=== PATIENT | female | born 1985 | race Caucasian/White ===

== ENCOUNTER → 2024-02-02 09:50 | Outpatient (REF) | payer OTHER, SELFPAY ==
[2024-02-02 12:26] LABS: Urine Albumin Negative (Neg - Trace); Urine Bilirubin Negative (Negative); Urine Character Clear (Clear); Urine Color Straw; Urine Glucose Negative (Negative); Urine Ketone Negative (Negative); Urine Leukocyte Negative (Negative); Urine Nitrite Negative (Negative); Urine Occult Blood Negative (Negative); Urine Specific Gravity 1.005 (<1.030); Urine Urobilinogen Negative (Neg - 1+); Urine pH 6.5 (5.0-9.0)
== END ==
LOC: HWRAD 09:50
PROVIDERS: ATTENDING PHYSICIAN Urology; FAMILY PHYSICIAN Family Medicine
DX: N30.10 Interstitial cystitis (chronic) without hematuria (principal); M62.89 Other specified disorders of muscle
CPT/HCPCS: 36415; 76770; 76856; 81003

== ENCOUNTER → 2024-03-09 08:40 | Outpatient (REF) | payer OTHER, SELFPAY | LOC: HWRAD 08:40 | PROVIDERS: ATTENDING PHYSICIAN Urology; FAMILY PHYSICIAN Family Medicine | DX: R93.89 Abnormal findings on diagnostic imaging of other specified body structures (principal); N28.89 Other specified disorders of kidney and ureter | CPT/HCPCS: 74170; Q9967 ==

== ENCOUNTER 2024-11-13 15:18 | Observation (INO) | payer OTHER, SELFPAY ==
[2024-11-13] VITALS (19 sets, daily range): BP systolic 63–103; BP diastolic 31–62; PULSE 74–99; BMI 18.8; BMI 19.5
--- NOTE | 2024-11-13 09:54 | ED.GENMED ---
History of Present Illness
General
Chief Complaint: Headache
Source: patient
Time Seen by Provider: 11/13/24 09:43
History of Present Illness
History of Present Illness:
39-year-old female presents to the emergency room complaining of lightheadedness, generalized weakness, nausea. Symptoms began primarily yesterday. Patient states she feels too weak to stand up. She denies any recent fever or chills. She denies
any urinary symptoms. She denies any abnormal bleeding or black stools. She is tolerating oral intake and admits to drinking a lot of water over the past 24 hours. Patient states she has a history of IBS and takes Linzess. She has been on the
same dose for some time. She sometimes have diarrhea in the morning but typically not the rest of the day and last night she had multiple episodes of diarrhea which is unusual for her.
Past History
Past History
ED Past Medical History: None
ED Past Surgical History: None
Social History
Tobacco: Non-smoker
Alcohol: None
Drug: None
Personal: Single
Living: with family
Phy Exam
Physical Exam
Physical Exam:
General: Awake, Alert, Oriented X3. Extremely thin almost cachectic appearing
Vitals: Hypotensive
Head: Atraumatic
Eyes: Pupils equal, EOMI
Throat: Airway intact, no exudates
Neck: Trachea midline
Lungs: Clear and equal b/l
Heart: Regular rate, no murmurs
Abd: Soft, Nontender, No pulsatile mass
Neuro: Nonfocal
Skin: Warm, dry, no rash
Extremities: pulses equal b/l, no edema
Course
Orders/Labs/Results
Orders:
Orders
11/13/24 09:35
Test Result ONCE
11/13/24 09:52
0.9% Sodium Chloride 1000 ml [Nss] 1,000 ml IV BOLUS
11/13/24 09:53
Electrocardiogram (*1) Urgent
Reason for Study: Vertigo / Dizzy
EKG- Treatment ONCE
11/13/24 10:24
Complete Blood Count/With Diff Urgent
Comprehensive Metabolic Panel Urgent
HCG, Serum Qualitative Screen Urgent
Comment: Notify provider if positive test present
Urinalysis Reflex To Culture Urgent
Date Specimen was Collected: 11/13/24
Time Specimen was Collected: 10:01
Urine Microscopic Reflex Cult Urgent
Urine Culture Urgent
CONSUELO Source: U
Specimen Description:
Date Specimen was Collected: 11/13/24
Time Specimen was Collected: 10:01
11/13/24 13:54
0.9% Sodium Chloride 1000 ml [Nss] 1,000 ml IV BOLUS
11/13/24 14:01
CR Chest - 2 Views Urgent
Comment:
Reason For Exam: weakness, sob
11/13/24 14:50
Admit/Transfer Patient As Directed
Co-Sign Provider:
Level of Care: Observation services
Assign to:: Medical/Surgical
Physician / Group: Priscilla Potter
Diagnosis: volume depletion
PRN Pain Medication Management As Directed
May give lesser potent ordered pain med per pt: Yes
preference::
Protocol:: Medication orders for pain may be administered in a
manner that supports deferring to patient preference
when the pt is:
- Requesting an ordered lesser potent pain medication.
Least to most potent pain medications are defined
as: acetaminophen < NSAID < tramadol < opioids
(morphine, oxycodone, hydromorphone).
- Requesting a lesser dose of the same medication IF
ORDERED.
- Requesting a less intrusive route of administration
if both routes are prescribed by the provider (PO <
IV).
11/13/24 14:51
Code Status As Directed
Resuscitation Status: Full Code
11/13/24 Dinner
Regular
At Your Request: Full Participation
Does patient need a safe tray?: No
11/13/24 15:28
STOOL [C difficile Antigen & Toxins] Urgent
CONSUELO Source: Feces/Stool
Specimen Description:
Date Specimen was Collected: 11/13/24
Time Specimen was Collected: 15:15
Stool Culture Urgent
CONSUELO Source: Feces/Stool
Specimen Description:
Date Specimen was Collected: 11/13/24
Time Specimen was Collected: 15:15
11/13/24 17:37
Acetaminophen [Tylenol] 650 mg PO Q4HPRN PRN
Lactated Ringers [Lr] 1,000 ml IV 100 mls/hr
11/13/24 17:37
Activity As Directed
Activity Level: Out of Bed-Early Mobility
Intake/ Output As Directed
Frequency: Per unit guidelines
Orthostatic Vital Signs As Directed
Orthostatic VS Frequency: BID
Vital Signs As Directed
Frequency: Per unit guidelines
Weight As Directed
Frequency: Once
Comment: on admission
DX Deep Vein Thrombosis Video Routine
11/13/24 18:00
Enoxaparin Sodium [Lovenox] 40 mg SC QPM
11/14/24 06:27
Basic Metabolic Panel IN AM
Complete Blood Count/No Diff IN AM
Abnormal Lab Results
11/13/24
10:24
WBC 16.9 H 10^3/uL
(4.8-10.8)
RBC 3.78 L 10^6/uL
(4.20-5.40)
Hct 34.4 L %
(37.0-47.0)
MCH 32.8 H pg
(27.0-31.0)
Abs Immat Gran (auto) 0.1 H 10^3/uL
(0-0.05)
Absolute Neuts (auto) 15.5 H 10^3/uL
(1.4-6.5)
Absolute Lymphs (auto) 0.6 L 10^3/uL
(1.2-3.4)
Immature Gran % 0.7 H %
(0-0.5)
Neutrophils % 91.6 H %
(42.2-75.2)
Lymphocytes % 3.4 L %
(20.5-51.1)
Sodium 134 L mmol/L
(135-145)
Carbon Dioxide 19 L mmol/L
(22-30)
Glucose 113 H mg/dl
(70-99)
Total Bilirubin 1.4 H mg/dl
(0.2-1.3)
Urine Ketones 1+ A
(Negative)
Ur Occult Blood Reflex 4+ A
(Negative)
Leukocyte Esterase Rfl 1+ A
(Negative)
Urine RBC 7-10 A /HPF
(0-2)
Urine Bacteria (Reflex) Moderate A
(Negative)
Urine Albumin (Reflex) 2+ A
(Neg - Trace)
11/13/24 10:24
11/13/24 10:24
Vital Signs
Initial and Last Documented VS:
Initial Vital Signs
Temp Pulse Resp BP Pulse Ox
99.7 F 94 16 76/38 99
11/13/24 09:26 11/13/24 09:26 11/13/24 09:26 11/13/24 09:26 11/13/24 09:26
Last Documented Vital Signs
Temp Pulse Resp BP Pulse Ox
99.1 F 91 18 112/54 100
11/13/24 23:00 11/13/24 23:00 11/13/24 23:00 11/14/24 00:36 11/13/24 23:00
MDM/Problems Addressed
Differential Diagnosis Includes:
Dehydration, autonomic instability from eating disorder, electrolyte abnormality
MDM/Problems Addressed:
Patient presents with significant dizziness, low blood pressures. Clinically the patient did appear dry. 2 L of IV fluid administered. Patient continued to be orthostatic however. She does have a bit of a Metabolic acidosis. Patient Dors is
having diarrhea which may have caused her volume contraction.
*EKG
Interpreted by ED Provider?: Yes
Heart Rate: 72
Rate: normal
Rhythm: sinus
[place]: normal axis
Interval: normal interval
QRS Pattern: normal QRS
Ischemia: no ischemia
*Sample Stitcher Interpretation
Rate: normal
Interpretation: normal
Rhythm: sinus
*Critical Care Note
Total Time (30-74mins, 75-104mins- exclusive of procedures): Not Applicable
ED Attending Note
-
Portions of this chart may have been created with voice recognition software.� Occasional wrong word or��sound alike� substitutions may have occurred due to the inherent limitations of voice recognition software.
Discharge Plan
Departure
Patient Disposition: Admit
Presentation/result/management discussed w/ accepting MD/DO: Hospitalist
Condition: Fair
Discharge Problem:
Acute dehydration, Diarrhea
Interventions
Interventions:
*Risk Screen - Suicide Last Done: 11/13/24 09:26
*General Assessment Last Done: 11/13/24 10:12
*Neglect/Abuse Screening Last Done: 11/13/24 09:26
*ED- Fall Risk Assessment Last Done: 11/13/24 19:54
*ED COVID-19 Vaccine History Last Done: 11/13/24 20:48
*Nursing Disposition Last Done: 11/13/24 19:54
ED- Neurological Assessment Last Done: 11/13/24 12:00
Discharge Date and Time
Discharge Date/Time: 11/13/24 19:56
[2024-11-13] MEDS: NSS 1000 IV ×2 (10:25→14:08)
[2024-11-13 10:39] LABS: % Basophils 0.4 % (0-2); % Eosinophils 0.5 % (0-6); % Immature Granulocytes 0.7 % (0-0.5); % Lymphocytes 3.4 % (20.5-51.1); % Monocytes 3.4 % (1.7-9.3); % Neutrophils 91.6 % (42.2-75.2); Absolute Basophils 0.1 10^3/uL (0-0.2); Absolute Eosinophils 0.1 10^3/uL (0-0.7); Absolute Immature Granulocytes 0.1 10^3/uL (0-0.05); Absolute Lymphocytes 0.6 10^3/uL (1.2-3.4); Absolute Monocytes 0.6 10^3/uL (0.1-0.6); Absolute Neutrophils 15.5 10^3/uL (1.4-6.5); Hematocrit 34.4 % (37.0-47.0); Hemoglobin 12.4 g/dL (12.0-16.0); Mean Corpuscular Hgb 32.8 pg (27.0-31.0); Mean Platelet Volume 10.3 fL (7.4-10.4); Nucleated Red Blood Cells % 0 %; Platelet Count 212 10^3/uL (130-400); Red Blood Cell Count 3.78 10^6/uL (4.20-5.40); Red Cell Dist. Width 11.9 % (11.5-14.5); White Blood Cell Count 16.9 10^3/uL (4.8-10.8)
[2024-11-13 10:40] LABS: Urine Albumin 2+ (Neg - Trace); Urine Bilirubin Negative (Negative); Urine Character Clear (Clear); Urine Color Yellow; Urine Glucose Negative (Negative); Urine Ketone 1+ (Negative); Urine Leukocyte 1+ (Negative); Urine Nitrite Negative (Negative); Urine Occult Blood 4+ (Negative); Urine Urobilinogen Negative (Neg - 1+)
[2024-11-13 10:53] LABS: HCG, Serum Qualitative Screen Negative
[2024-11-13 10:56] LABS: Urine Squamous Cell >30 /LPF (Few)
[2024-11-13 10:57] LABS: Urine Mucus Moderate
[2024-11-13 11:02] LABS: Urine Bacteria Moderate (Negative)
[2024-11-13 11:09] LABS: Urine Granular Cast 0-2 /LPF (0); Urine Hyaline Cast 0-2 /LPF (0-2)
[2024-11-13 11:19] LABS: ALT (SGPT) 14 U/L (0-35); AST (SGOT) 30 U/L (14-36); Albumin 4.5 g/dl (3.5-5.0); Alkaline Phosphatase 41 U/L (38-126); Blood Urea Nitrogen 12 mg/dl (7-17); Calcium 8.8 mg/dl (8.4-10.2); Carbon Dioxide 19 mmol/L (22-30); Chloride 107 mmol/L (98-107); Estimated Creatinine Clearance 76 ml/min; Glucose 113 mg/dl (70-99); Potassium 4.3 mmol/L (3.5-5.1); Sodium 134 mmol/L (135-145); Total Bilirubin 1.4 mg/dl (0.2-1.3); Total Protein 7.3 g/dl (6.3-8.2); eGFR > 60.00
--- NOTE | 2024-11-13 14:09 | HPS.HSE ---
Family Physician
-
Family Physician: Kathie Cohen
Chief Complaint
-
lightheadedness, generalized weakness, nausea
History of Present Illness
Patient is a 39-year-old female with past medical history significant for IBS, pelvic floor dysfunction, body dysmorphia and depression/anxiety who presented to [facility] ED for evaluation of lightheadedness, generalized weakness and nausea. Patient
reports feeling dizzy when standing or walking since last night. She reports some mild intermittent nausea associated with symptoms. Symptoms resolve when laying down and then she feels like she gets a headache. Patient denies any fever, chills,
cough, shortness of breath, chest pain, nausea, vomiting, constipation or urinary symptoms.
Medical History
Past Medical History
Past Medical History: Reports Other
Additional Past Medical History:
IBS
pelvic floor dysfunction
body dysmorphia
depression/anxiety
Past Surgical History: Reports Other
Additional Past Surgical History:
basal cell skin cancer on stomach 2017
hemorrhoidal banding 2018
L breast abscess drained
Social History
Tobacco: Non-smoker
Alcohol: None
Drug: None
Living: Alone
Employment: Employed
Family History
Family History: Other (Sister: CKD)
Allergies / Home Medications
Allergies reflects when Allergies were last updated in [facility].
Home Medications with original date entered in [employer]
Allergy/Medication List:
Allergies
Allergy/AdvReac Type Severity Reaction Status Date / Time
No Known Allergies Allergy Verified 11/13/24 10:00
Home Medications
escitalopram oxalate 5 mg tablet (Lexapro) 5 mg PO DAILY 11/13/24
linaclotide 145 mcg capsule (Linzess) 145 mcg PO DAILY 11/13/24
valacyclovir 1 gram tablet (Valtrex) 1,000 mg PO DAILY 11/13/24
Review of Systems
-
History Source: Patient
Constitutional: Reports No Symptoms
EENT: Reports No Symptoms
Respiratory: Reports No Symptoms
Cardiac: Reports No Symptoms
Abdomen/GI: Reports Nausea and Diarrhea
: Reports No Symptoms
Musculoskeletal: Reports No Symptoms
Skin: Reports No Symptoms
Neurological: Reports Weakness
Endocrine: Reports No Symptoms
Hematologic/Lymphatic: Reports No Symptoms
Psych: Reports No Symptoms
Physical Exam
Vital Signs
Vital Signs
Temp Pulse Resp BP Pulse Ox
99.7 F 88 15 90/55 99
11/13/24 09:26 11/13/24 14:00 11/13/24 14:00 11/13/24 14:00 11/13/24 09:26
Physical Exam
General: Well Developed, Well Nourished, No Apparent Distress, Comfortable, Conversant and Poor Appetite
HEENT: NormoCephalic, Moist mucous membranes, Atraumatic, Nose Appears Normal and Ears Appear Normal
Respiratory: Clear
Cardiac: S1/S2 and Regular Rhythm; No Murmur or Rub
Breast: Deferred by me
GI: Soft, Non Tender, Non Distended and Normal Bowel Sounds
Rectal: Deferred by Provider
Genito-urinary: Deferred by me
Musculoskeletal: No Clubbing, No Cyanosis and No Edema
Skin: Warm and IV/Catheter Site
Neuro: Awake, Alert, AO x 3 and Nonfocal/grossly intact
Hematologic/Lymphatic: No Lymphadenopathy
Psych: Calm and Intact Judgment/Insight
Laboratory Results
-
11/13/24 10:24
11/13/24 10:24
Laboratory Results
Total Bilirubin 1.4 mg/dl (0.2-1.3) H 11/13/24 10:24
AST 30 U/L (14-36) 11/13/24 10:24
ALT 14 U/L (0-35) 11/13/24 10:24
Alkaline Phosphatase 41 U/L (38-126) 11/13/24 10:24
Data Reviewed
-
Medical Tests (Nuc Med, Echo, EKG etc): Report Reviewed by me (EKG: NORMAL SINUS RHYTHM)
Lab Data: Labs Reviewed by me (WBC 16.9, Na+ 134)
Impression/Plan
-
IMPRESSION/PLAN:
#volume depletion from chronic diarrhea with Linzess
lightheadedness, generalized weakness, nausea
- Admit to med/surg
- orthostatic VSS
- hold Linzess
- IVF
#IBS
- hold Linzess
#depression/anxiety
- continue escitalopram
#body dysmorphia
#pelvic floor dysfunction
Code status: full code
DVT prophylaxis: Lovenox sq
--- NOTE | 2024-11-13 14:49 | W.PN.UPDATE ---
Update Note
Progress Note Update
This is an addendum to the H&P written by Nati Jackson on 11/13/2024.� Patient seen examined dependently with BIOMEDICAL ENGINEERING TECHNICIAN.��
39-year-old female history of IBS on Linzess for chronic constipation, body dysmorphia, presenting with lightheadedness, generalized weakness and nausea since last night.� Chronic diarrhea but continues to take Linzess.
Blood pressure 90s.�
Labs show leukocytosis.� Labs otherwise unremarkable.� Urinalysis unremarkable.
Patient likely dizzy secondary to volume losses from chronic diarrhea secondary to taking Linzess despite having chronic diarrhea. Does not seem to superimposed component of viral gastroenteritis although possible. Check stool studies. Recommend
stopping Linzess.� Check orthostatic vitals.� IV fluids.
--- NOTE | 2024-11-13 15:56 | CM ---
CM met with pt and her mother and sister/[place] bedside
Pt resides alone in a 1st floor apt with 0STE
Indep with her ADLs
Work FT out of the home
Denies use of DMEs and financial insecurities
PCP- Kathie Cohen
Rx- Carmen Cr
OBS notice reviewed- copy provided
Discharge Disposition- anticipate home, no needs
[2024-11-13] MEDS: LR 1000 IV (18:05)
[2024-11-13] MEDS: TYLENOL 650 MG PO (20:11)
--- NOTE | 2024-11-13 20:40 | PTCARENOTE ---
Received patient from ED at approx. 2009. Patient ambulated with standby assistance from stretcher to bed. AAA x 3. Family members in room with patient. Oriented to room. Call medrano in reach.
[2024-11-13] MEDS: NSS 500 IV (23:54)
--- NOTE | 2024-11-13 23:55 | PTCARENOTE ---
Orthostatic BPs completed at approx 2330: Lying 82/44 HR 91, Sitting 78/40 HR 88, Standing 63/31 HR 77. Pt complained of dizziness with standing. GYNECOLOGIST notified via TT. 500ml bolus of NSS ordered and administered. Repeat BP post bolus, 112/54 HR 89
lying down. IVF resumed at 100mls/hr.
[2024-11-14 00:36] VITALS: BP 112/54
[2024-11-14] MEDS: LR 1000 IV ×2 (04:27→14:44)
[2024-11-14 07:30] VITALS: BP 97/51
[2024-11-14 08:02] LABS: Hematocrit 31.1 % (37.0-47.0); Hemoglobin 10.9 g/dL (12.0-16.0); Mean Corpuscular Volume 91.2 fL (81.0-99.0); Mean Platelet Volume 10.6 fL (7.4-10.4); Platelet Count 183 10^3/uL (130-400); Red Blood Cell Count 3.41 10^6/uL (4.20-5.40); Red Cell Dist. Width 11.9 % (11.5-14.5); White Blood Cell Count 11.3 10^3/uL (4.8-10.8)
[2024-11-14] MEDS: VALTREX 1000 MG PO (08:16)
[2024-11-14] MEDS: LEXAPRO 5 MG PO (08:16)
[2024-11-14 08:26] LABS: Blood Urea Nitrogen 3 mg/dl (7-17); Calcium 7.7 mg/dl (8.4-10.2); Carbon Dioxide 20 mmol/L (22-30); Chloride 113 mmol/L (98-107); Estimated Creatinine Clearance 90 ml/min; Glucose 101 mg/dl (70-99); Sodium 137 mmol/L (135-145); eGFR > 60.00
[2024-11-14 08:33] VITALS: BP 100/59; BP 105/50; BP 97/51; PULSE 103; PULSE 114; PULSE 84
--- NOTE | 2024-11-14 08:57 | W.PN.HOSP.TC ---
Today's Communication/Plan
-
see bold
Assessment / Plan
Assessment / Plan
HPI: 39-year-old female with past medical history significant for IBS, pelvic floor dysfunction, body dysmorphia and depression/anxiety who presented to [facility] ED for evaluation of lightheadedness, generalized weakness and nausea. Patient reports
feeling dizzy when standing or walking since last night. She reports some mild intermittent nausea associated with symptoms. Symptoms resolve when laying down and then she feels like she gets a headache. Patient denies any fever, chills, cough,
shortness of breath, chest pain, nausea, vomiting, constipation or urinary symptoms.
#Fever, leukocytosis upon admission
Patient reports eating Telugu food 2 days prior to admission, then developed diarrhea
Fever and leukocytosis are improving without antibiotics
C. difficile negative, follow-up on stool cultures
Monitor off of antibiotics
#Dehydration
#Hypotension
#Dizziness
11/14 Orthostatic vital signs negative
Hypotension resolved
Due to diarrhea, continue IV fluids
#IBS
- hold Linzess
#depression/anxiety
- continue escitalopram
#body dysmorphia
#pelvic floor dysfunction
Code status: full code
DVT prophylaxis: Lovenox sq
Updated mother at bedside 11/14
Total time spent to see the patient on the floor, examine the patient, review data and lab results, discuss treatment plan with patient, nursing staff around 45 minutes.
Physical Exam
General: No acute distress
HEENT: Normocephalic, Atraumatic, EOMI, MMM
Respiratory: Clear to Auscultation bilaterally
Cardiac: Normal S1/S2, Regular Rate and Rhythm
GI: Soft, Nontender, Nondistended, Normal Bowel Sounds
Extremities: No Clubbing, Cyanosis, or Edema
Neuro: Nonfocal/Grossly Intact
Psych: Calm, Cooperative
Derm: No Visible lesions
Anticipated Discharge: Within 24 hours
Subjective/Interval History
-
Date of Service: November 14, 2024
Patient was febrile yesterday. Denies nausea, vomiting. She is tolerating her diet. Denies abdominal pain. Dizziness resolved. Continues to have liquidy brown stools, 4 episodes overnight.
Objective Data
-
Labs:
Laboratory Results
11/14/24
06:27
WBC 11.3 H
Hgb 10.9 L
Hct 31.1 L
Plt Count 183
Sodium 137
Potassium 4.0
Chloride 113 H
Carbon Dioxide 20 L
BUN 3 L
Creatinine 0.7
Glucose 101 H
Calcium 7.7 L
Vital Signs:
Vital Signs
Temp Pulse Resp BP Pulse Ox
98.3 F 84 16 97/51 96
11/14/24 07:30 11/14/24 07:30 11/14/24 07:30 11/14/24 07:30 11/14/24 07:30
I&O
11/13/24 11/14/24 11/15/24
06:59 06:59 06:59
Intake Total 2219
Balance 2219
--- NOTE | 2024-11-14 12:16 | CM ---
CM reviewed chart, patient seen with family. Patient denies needs at this time, patient plan remains return home when stable. CM will continue to follow for all discharge planning needs.
Plan; return home when stable
[2024-11-14 15:10] VITALS: BP 99/60
[2024-11-14] MEDS: TYLENOL 650 MG PO (17:54)
[2024-11-14 22:53] VITALS: BP 96/60
[2024-11-15] MEDS: LR 1000 IV ×2 (00:41→10:42)
[2024-11-15 07:32] VITALS: BP 99/66
[2024-11-15] MEDS: TYLENOL 650 MG PO (08:03)
[2024-11-15] MEDS: LEXAPRO 5 MG PO (08:05)
[2024-11-15] MEDS: VALTREX 1000 MG PO (08:05)
[2024-11-15 08:38] VITALS: BP 104/62; BP 96/54; BP 99/66; PULSE 76; PULSE 79; PULSE 87
[2024-11-15 08:47] LABS: Hematocrit 31.2 % (37.0-47.0); Hemoglobin 10.9 g/dL (12.0-16.0); Mean Corp Hgb Conc. 34.9 g/dL (33.0-37.0); Mean Corpuscular Hgb 31.5 pg (27.0-31.0); Mean Corpuscular Volume 90.2 fL (81.0-99.0); Mean Platelet Volume 10.5 fL (7.4-10.4); Platelet Count 188 10^3/uL (130-400); Red Blood Cell Count 3.46 10^6/uL (4.20-5.40); Red Cell Dist. Width 11.9 % (11.5-14.5); White Blood Cell Count 8.2 10^3/uL (4.8-10.8)
--- NOTE | 2024-11-15 09:14 | W.PN.HOSP.TC ---
Today's Communication/Plan
-
Discharge in late afternoon per patient's request
Assessment / Plan
Assessment / Plan
HPI: 39-year-old female with past medical history significant for IBS, pelvic floor dysfunction, body dysmorphia and depression/anxiety who presented to [facility] ED for evaluation of lightheadedness, generalized weakness and nausea. Patient reports
feeling dizzy when standing or walking since last night. She reports some mild intermittent nausea associated with symptoms. Symptoms resolve when laying down and then she feels like she gets a headache. Patient denies any fever, chills, cough,
shortness of breath, chest pain, nausea, vomiting, constipation or urinary symptoms.
#Fever, leukocytosis upon admission
#Suspected infectious diarrhea
Patient reports eating Latvian food 2 days prior to admission, then developed diarrhea
Fever and leukocytosis are improving without antibiotics
C. difficile negative, follow-up on stool cultures
Patient requesting discharge, will discharge today
Follow-up with PCP in 1 week, and GI as needed
#Dehydration
#Hypotension
#Dizziness
11/14 Orthostatic vital signs negative
Hypotension resolved
Due to diarrhea, resolved on IV fluids
#IBS
- Appreciate GI input, plan to decrease Linzess dose to 72 mcg daily, down from 145 mcg daily due to diarrhea
#Hypophosphatemia
Phosphorus level 1.9 today
Will give 40 mEq of IV K-Phos x 1, Neutra-Phos 500 mg p.o. x 2 prior to discharge
Plan to discharge on Neutra-Phos 500 mg twice daily for 7 days, prescription provided to repeat phosphorus level on 11/20/2024
#depression/anxiety
- continue escitalopram
#body dysmorphia
#pelvic floor dysfunction
Code status: full code
DVT prophylaxis: Lovenox sq
Updated mother at bedside 11/15
Physical Exam
General: No acute distress
HEENT: Normocephalic, Atraumatic, EOMI, MMM
Respiratory: Clear to Auscultation bilaterally
Cardiac: Normal S1/S2, Regular Rate and Rhythm
GI: Soft, Nontender, Nondistended, Normal Bowel Sounds
Extremities: No Clubbing, Cyanosis, or Edema
Neuro: Nonfocal/Grossly Intact
Psych: Calm, Cooperative
Derm: No Visible lesions
Anticipated Discharge: Today
Subjective/Interval History
-
Date of Service: November 15, 2024
Patient is tolerating her diet. No nausea, no vomiting. Continues to have multiple liquid stools associated with abdominal cramping. No fever. She is requesting discharge.
Objective Data
-
Labs:
Laboratory Results
11/15/24
07:38
WBC 8.2
Hgb 10.9 L
Hct 31.2 L
Plt Count 188
Sodium Pending
Potassium Pending
Chloride Pending
Carbon Dioxide Pending
BUN Pending
Creatinine Pending
Glucose Pending
Calcium Pending
Vital Signs:
Vital Signs
Temp Pulse Resp BP Pulse Ox
98.5 F 76 18 99/66 100
11/15/24 07:32 11/15/24 07:32 11/15/24 07:32 11/15/24 07:32 11/15/24 07:32
I&O
11/14/24 11/15/24 11/16/24
06:59 06:59 06:59
Intake Total 2220 / 2220 2640 / 2640
Balance 2220 / 2220 2640 / 2640
--- NOTE | 2024-11-15 10:23 | CON.GI ---
Addendum entered and electronically signed by Swati Ely MD 11/15/24 13:13:
The patient was seen and examined by me independently in collaboration with the nurse practitioner.
Past medical history/social history/medications/allergies/family history reviewed.
Lab data and imaging data reviewed.
39-year-old female past medical history of IBS constipation presenting with diarrhea. Has baseline diarrhea with Linzess but this diarrhea was worse and different from prior. She had [place] food on Tuesday and afterwards she started feeling tired.
Tuesday she started having profuse diarrhea with 4-5 bowel movements during the day and 4-5 bowel movements at night. No blood in the stool. No sick contacts. No one else at the [place] food that she had. Did not note any fevers at home but did
have a fever here to 101.9. Came in feeling dizzy and was found to be hypotensive with systolic as low as 69. She also had a leukocytosis when she first came in with white blood cell count of 16.9. I suspect she had an infectious diarrhea. Stool
studies were negative although these are limited. She seems to be improving. 2 stools today. We discussed holding off on the Linzess until her diarrhea improved. Plan to do a lower dose of Linzess 72 as was having some looser stool with the
Linzess. Continue low fiber diet and advance as tolerated outpatient. Patient is known to Dr. Seth and she sent a message to Dr. Seth informing her that she was in the hospital. GI will sign off. Discussed with hospitalist. Please call with
any questions or issues.
Addendum entered and electronically signed by RUY Christopher 11/15/24 11:45:
Phos 1.9 K 3.9 for K phos replacement today.
Original Note:
Consultation
-
Date/Time Consultation Requested: 11/15/24 1015
Date/Time Consultation Performed: 11/15/24 1030
Requesting Provider: shaina Li MD
Performing Provider: RUY Richards, Daniella Ely MD
Reason for Consultation: diarrhea with hx IBS
Medical History
Chief Complaint / HPI
Chief Complaint: diarrhea
History of Present Illness:
Pt is a 39yo with hx skin CA, IBS- constipation, pelvic floor dysfunction, anxiety, depression, prior skin CA, renal stones, hemorrhoidal banding with OP follow with Dr. Seth for IBS and pelvic floor dysfunction. She has completed pelvic floor PT
and has been on chronic Linzess with last visit in GI office 11/05 with plan to continued Linzess 145mcg daily along with other supplements and work on mental health. Pt now presents 11/13 with weakness, lightheadedness, and nausea after eating
kenyan food 2 days prior to admission. On admission noted with fever 101.9, hypotension which is now improved with WBC 16,900, hbg 10.9, Na 134, glucose 113 bili 1.4 otherwise stable labs. Normal CXR, Urine cx with contaminant, neg c-diff and
stool culture. She continued with diarrhea and asked to see for symptoms. In review with patient she relates that after completing pelvic floor therapy she was having several looser stools in then AM and wondering if this was leading to some
dehydration. She also admits to some increased caffeine supplement around the same time. She questions if she can trial lower lose linzess again.
She otherwise denies odynophagia, dysphagia, GERD, nausea, vomiting, abdominal pain, current constiaption or rectal bleeding. Hx EGD/colon in [place] about 1 1/2 years ago with normal results. Pt currently states anxiety/depression stable
but can lead to symptoms at times.
Past Medical History
Past Medical History: Cancer (skin CA on stomach ), Psychiatric (depression, anxiety ) and Other (kidney stones, painful bladder syndrome, IBS with constipation , pelvic floor dysfunction)
Past Surgical History: Other (hemorrhoidal banding , breast abscess drainage)
Social History
Tobacco: Non-Smoker
Alcohol: None
Drug: None
Living: Alone
Employment: Employed
Family History
Family History: Other (no family hx GI issues)
Allergies / Home Medications
Allergy/AdvReac Type Severity Reaction Status Date / Time
No Known Allergies Allergy Verified 11/13/24 10:00
�Medication �Instructions �Recorded
escitalopram oxalate 5 mg tablet 5 mg PO DAILY 11/13/24
(Lexapro)
linaclotide 145 mcg capsule 145 mcg PO DAILY 11/13/24
(Linzess)
valacyclovir 1 gram tablet 1,000 mg PO DAILY 11/13/24
(Valtrex)
Review of Systems
-
History Source: Patient and Family
Constitutional: Reports Fever
EENT: Reports No Symptoms
Respiratory: Reports No Symptoms
Cardiac: Reports No Symptoms
Abdomen/GI: Reports Diarrhea and Constipated (by history )
: Reports No Symptoms
Musculoskeletal: Reports No Symptoms
Skin: Reports No Symptoms
Neurological: Reports Headache (improving) and Weakness (improving )
Endocrine: Reports No Symptoms
Hematologic/Lymphatic: Reports No Symptoms
Vital Signs
Temp Pulse Resp BP Pulse Ox
98.5 F 76 18 99/66 100
11/15/24 07:32 11/15/24 07:32 11/15/24 07:32 11/15/24 07:32 11/15/24 07:32
Physical Exam
Exam
General: Well Developed and Well Nourished
HEENT: Normocephalic and Anicteric
Respiratory: Clear
Cardiac: Regular Rhythm
GI: Soft, Non Tender and Non Distended
Musculoskeletal: No Clubbing and No Cyanosis
Skin: Warm and Dry
Neuro: Awake, Alert and AO x 3
Psych: Calm
Results
WBC 8.2 10^3/uL (4.8-10.8) 11/15/24 07:38
Hgb 10.9 g/dL (12.0-16.0) L 11/15/24 07:38
Hct 31.2 % (37.0-47.0) L 11/15/24 07:38
MCV 90.2 fL (81.0-99.0) 11/15/24 07:38
Plt Count 188 10^3/uL (130-400) 11/15/24 07:38
Absolute Neuts (auto) 15.5 10^3/uL (1.4-6.5) H 11/13/24 10:24
Sodium 137 mmol/L (135-145) 11/14/24 06:27
Potassium 4.0 mmol/L (3.5-5.1) 11/14/24 06:27
Chloride 113 mmol/L (98-107) H 11/14/24 06:27
Carbon Dioxide 20 mmol/L (22-30) L 11/14/24 06:27
BUN 3 mg/dl (7-17) L 11/14/24 06:27
Creatinine 0.7 mg/dL (0.6-1.0) 11/14/24 06:27
Calcium 7.7 mg/dl (8.4-10.2) L 11/14/24 06:27
Total Bilirubin 1.4 mg/dl (0.2-1.3) H 11/13/24 10:24
AST 30 U/L (14-36) 11/13/24 10:24
ALT 14 U/L (0-35) 11/13/24 10:24
Alkaline Phosphatase 41 U/L (38-126) 11/13/24 10:24
Diagnostic Image Results:
11/13/24 CXR
No acute cardiopulmonary process.
Prior GI Procedures:
EGD: 1 1/2 years ago [facility] recalls as normal
Colonoscopy: 1 1/2 years ago [facility] recalls as normal
Assessment / Plan
-
Pt is a 39yo with hx skin CA, IBS- constipation, pelvic floor dysfunction, anxiety, depression, prior skin CA, renal stones, hemorrhoidal banding with OP follow with Dr. Seth for IBS and pelvic floor dysfunction. She has completed pelvic floor PT
and has been on chronic Linzess with last visit in GI office 11/05 with plan to continued Linzess 145mcg daily along with other supplements and work on mental health. Pt now presents 11/13 with weakness, lightheadedness, and nausea after eating
kenyan food 2 days prior to admission. On admission noted with fever 101.9, hypotension which in now improved with WBC 16,900, hbg 10.9, Na 134, glucose 113 bili 1.4 otherwise stable labs. Normal CXR, Urine cx with contaminant, neg c-diff and
stool culture. She continued with diarrhea and asked to see for symptoms. In review with patient she relates that after completing pelvic floor therapy she was having several looser stools in then AM and wondering if this was leading to some
dehydration. She also admits to some increased caffeine supplement around the same time. She questions if she can trial lower lose Linzess again.
-fever/leukocytosis/hypotension/dizziness on admission
-hx IBS-C now with diarrhea
-pelvic floor dysfunction
other med problems:
-skin CA
-anxiety/depression
-hx renal stones
-prior hemorrhoidal banding
PLAN:
Etiology of symptoms related to GI infection(with recent [place] food) with leukocytosis/fever on admission, viral syndrome, vs less likely IBS but in differential vs other
Pt currently tolerating liquid and solids and asking for discharge with feeling improved
no fever with normal WBC's since admission, BP improved
discussed continue to stay hydrated with non caffeinated drinks, avoid lactulose products til diarrhea improves
-advised to hold Linzess til diarrhea improves then start lower dose of 72mcg on resuming before first meal as instructed -- script sent to her home pharmacy
return if any recurrent fever or symptoms
discussed IBS with anxiety/depression keeping track and symptoms and managing psych issues which are stable
family updated
-
-
Thank you for consultation and allowing me to participate in the patient's care. Please call the correction officer GI physician during the after hours with any questions or concerns.
[2024-11-15 10:49] LABS: Blood Urea Nitrogen 3 mg/dl (7-17); Calcium 7.9 mg/dl (8.4-10.2); Carbon Dioxide 23 mmol/L (22-30); Chloride 112 mmol/L (98-107); Estimated Creatinine Clearance 104 ml/min; Glucose 88 mg/dl (70-99); Magnesium 1.7 mg/dl (1.6-2.3); Phosphorus 1.9 mg/dl (2.5-4.5); Potassium 3.9 mmol/L (3.5-5.1); Sodium 138 mmol/L (135-145); eGFR > 60.00
--- NOTE | 2024-11-15 11:48 | CM ---
CM reviewed chart, reviewed with nurse, patient seen bedside with mother. Patient reports no needs to CM, inquiring about d/c. Per Hospitalist, plan for d/c later this afternoon. CM will continue to follow for all discharge planning needs.
Plan; home no needs.
[2024-11-15] MEDS: POTASSIUM PHOSPHATE 259.0909 MEQ IV (12:24)
[2024-11-15] MEDS: NEUTRA-PHOS POWDER PACKET 500 MG PO ×2 (12:25→16:15)
--- NOTE | 2024-11-15 14:50 | W.DCSUMMARY ---
Discharge Summary
Discharge Data
Date of Admission: 11/13/24
Date of Discharge: 11/15/24
-
Pending Results: No
Hospital Course
Discharge diagnosis:
Fever and leukocytosis upon admission
Probable infectious diarrhea
Hypophosphatemia
Dehydration
Hypotension
Dizziness
Irritable bowel syndrome on Linzess
Depression/anxiety
Body dysmorphia
Consults: GI
Hospital course:
39-year-old female with a past medical history of IBS on Linzess, depression/anxiety, and body dysmorphia presented with fever, leukocytosis, and diarrhea after eating [place] food 2 days prior to admission. Patient is on Linzess, which can cause
diarrhea. Her Linzess was held. She was also noted to be hypotensive and dizzy. She was treated with IV fluids. Her hypotension and dizziness resolved. Orthostatic vital signs were negative.
Patient's stool studies were negative. She was seen in conjunction with GI, who suspects she has probable infectious diarrhea. Her leukocytosis and fever resolved without antibiotics. GI cleared her for discharge on a decreased dose of Linzess,
72 mcg daily, decreased from 145 mcg daily.
Patient had hypophosphatemia on the day of discharge. Her phosphorus level was 1.9. She received potassium phosphorus 40 mEq IV x 1, and Neutra-Phos 500 mg p.o. x 2. She will be discharged on Neutra-Phos 500 mg twice a day for 7 days. She has
been provided a prescription to get repeat phosphorus levels checked on 11/20/2024. She needs to follow-up with her primary care doctor in 1 week, and her usual GI doctor, Dr. Seth as needed.
Disposition: Home self-care
Discharge planning: Required 41 minutes
Discharge Plan
-
Patient Disposition: Home (Routine Discharge)
Discharge Diagnosis/Procedures: Diarrhea, likely from viral infectious etiology, dizziness due to dehydration and low blood pressure, hypophosphatemia/low phosphorus, history of IBS on Linzess
Condition: Fair
Diet: Low Fiber
Additional Diets: drink plenty of liquids and avoid caffeinated products, if still with diarrhea limit lactose
Blood Work: Phosphorus level on 11/20/24
Wound Care: hold Linzess til diarrhea resolves then resume lower dose
Activity Restrictions/Additional Instructions:
Please take your phosphorus supplements as directed.
You need a repeat phosphorus level check on 11/20/2024.
Follow-up with your primary care doctor in 1 week, and GI as directed.
Referrals:
Lashonda Seth MD [Active] - (call Dr. Seth with any other question or problems after discharge )
Kathie Cohen DO [Family Provider] - in one week
Prescriptions:
New
Phosphorous 250 mg tablet
2 tab PO BID 7 Days Qty: 28 0RF
Linzess 72 mcg capsule
72 mcg PO DAILY Qty: 30 0RF
Continued
valacyclovir [Valtrex] 1 gram Tablet
1,000 mg PO DAILY
escitalopram oxalate [Lexapro] 5 mg Tablet
5 mg PO DAILY
Discontinued
Linzess 145 mcg Capsule
145 mcg PO DAILY
Discharge Orders:
Discharge Patient (As Directed); Ordered 11/15/24
Ordered By: Haresh Li
Discharge Date and Time
Discharge Date/Time: 11/15/24 18:31
Print Language: SPANISH
[2024-11-15 15:49] VITALS: BP 95/51
== END 2024-11-15 18:31 | disposition home or self-care (01) ==
LOC: 4 WEST ACU 15:18
PROVIDERS: Nurse Practitioner Family; ADMITTING PHYSICIAN Hospitalist; ATTENDING PHYSICIAN Family Medicine; CONSULT PHYSICIAN Internal Medicine Gastroenterology; EMERGENCY PHYSICIAN Emergency Medicine; FAMILY PHYSICIAN Family Medicine
DX: R19.7 Diarrhea, unspecified (principal); R51.9 Headache, unspecified; R53.1 Weakness; R11.0 Nausea; R42 Dizziness and giddiness; E86.0 Dehydration; K58.9 Irritable bowel syndrome, unspecified; I95.9 Hypotension, unspecified; R50.9 Fever, unspecified; E86.9 Volume depletion, unspecified; E87.20 Acidosis, unspecified; K59.02 Outlet dysfunction constipation; R06.02 Shortness of breath; D72.829 Elevated white blood cell count, unspecified; E83.39 Other disorders of phosphorus metabolism; K59.09 Other constipation; F45.22 Body dysmorphic disorder; F41.9 Anxiety disorder, unspecified; F32.A Depression, unspecified; Z60.2 Problems related to living alone; Z85.828 Personal history of other malignant neoplasm of skin; Z79.624 Long term (current) use of inhibitors of nucleotide synthesis; Z79.899 Other long term (current) drug therapy; Z87.442 Personal history of urinary calculi; Z87.19 Personal history of other diseases of the digestive system
CPT/HCPCS: 71046; 80048; 80053; 81003; 81015; 83735; 84100; 84703; 85025; 85027; 87045; 87046; 87086; 87324; 87427; 87449; 93005; 96360; 96361; 99285; G0378